=== PATIENT | female | born 1995 | race Caucasian/White ===

== ENCOUNTER 2023-07-18 11:22 | Emergency (ER) | payer OTHER, SELFPAY ==
[2023-07-18 11:27] VITALS: BP 121/84; PULSE 95; RESP 18; TEMP 36.9; O2SAT 100; BMI 20.9
--- NOTE | 2023-07-18 11:38 | ED.GENADULT ---
HPI - General Adult General Chief complaint: Skin/Abscess/Foreign Body Stated complaint: Cat bite R hand yesterday Time Seen by Provider: 07/18/23 11:25 Source: patient Mode of arrival: ambulatory Limitations: no limitations History of Present Illness HPI narrative: 27-year-old female coming in today approximately 24 hours after a cat bite. Patient works at a pet store. Unsure of her last tetanus shot. Complains of pain and swelling over the dorsal surface of the right hand. Denies systemic symptoms. Related Data Home Medications Medication Instructions Recorded Confirmed levothyroxine 125 mcg capsule 137 mcg PO QDAY 05/24/22 08/15/22 norgestimate 0.25 mg-ethinyl 1 tab PO QDAY 05/24/22 08/15/22 estradiol 35 mcg tablet (Estarylla) Previous Rx's Medication Instructions Recorded amoxicillin 875 mg-potassium 1 tab PO BID 7 days #14 tabs 07/18/23 clavulanate 125 mg tablet Allergies Allergy/AdvReac Type Severity Reaction Status Date / Time fluoxetine [From Prozac] Allergy Mild Verified 07/18/23 11:27 Sulfa (Sulfonamide Allergy Verified 07/18/23 11:27 Antibiotics) Review of Systems Status of ROS: Reports: 6 or more systems reviewed and unremarkable except as noted in History and below PFSH PFS Social History Smoking Status: Never smoker Do you use any of these nicotine containing products: None Second hand tobacco smoke exposure: No How often do you have a drink containing alcohol: monthly or less How many standard drinks containing alcohol do you have on a typical day: 1 or 2 How often do you have six or more drinks on one occasion: Never AUDIT-C Alcohol total score: 1 Non-prescribed substance use: denies use service: No Exam Narrative: Exam Narrative: Well-nourished well-developed patient in no acute distress. Alert and oriented. Answers questions appropriately. Mood and affect are appropriate. Thoughts are goal oriented and rational. No tangential or magical thinking noted. Patient speaks in full sentences without needing to catch her breath. Vital signs are normal. HEENT: Normocephalic atraumatic. Pupils are equally round reactive to light. Extraocular muscles are intact. Conjunctivae are moist without any icterus noted. Moist mucous membranes. Skin: Patient has swelling, warmth and erythema on the dorsal surface of the right hand. Redness does not extend down to the wrist or into the fingers. Full range of motion of the fingers and wrist. Const: Vital Signs, click to edit/add: Vital Signs - 24 hr 07/18/23 11:27 Temperature 98.5 F Pulse Rate [Pulse Oximeter] 95 Respiratory Rate 18 Blood Pressure [Le ft Upper Arm] 121/84 Pulse Oximetry 100 Oxygen Delivery Me thod Room Air Course Course ED Course: Given the amount of swelling and erythema noted today in just 24 hours time, a dose of IV Unasyn was given in the ED today. Patient did have a vasovagal episode with the IV insertion, recovered without incident. Tetanus shot is updated today. Vital Signs Vital signs: Initial Vital Signs Temperature 98.5 F 07/18/23 11:27 Temperature Source Temporal Artery Scan 07/18/23 11:27 Pulse Rate 95 07/18/23 11:27 Pulse Rhythm Regular 07/18/23 11:27 Respiratory Rate 18 07/18/23 11:27 Blood Pressure 121/84 07/18/23 11:27 Blood Pressure Mean 96 07/18/23 11:27 Blood Pressure Position Sitting 07/18/23 11:27 Pulse Oximetry 100 07/18/23 11:27 Oxygen Delivery Method Room Air 07/18/23 11:27 Vital Signs Temperature 98.5 F 07/18/23 11:27 Pulse Rate 95 07/18/23 11:27 Respiratory Rate 18 07/18/23 11:27 Blood Pressure 121/84 07/18/23 11:27 Pulse Oximetry 100 07/18/23 11:27 Oxygen Delivery Method Room Air 07/18/23 11:27 Temperature 98.5 F 07/18/23 11:27 Pulse Rate 95 07/18/23 11:27 Respiratory Rate 18 07/18/23 11:27 Blood Pressure 121/84 07/18/23 11:27 Pulse Oximetry 100 07/18/23 11:27 Oxygen Delivery Method Room Air 07/18/23 11:27 Medications Administered Medications: Discontinued Medications Generic Name Dose Route Start Last Admin Trade Name Freq PRN Reason Stop Dose Admin Ampicillin Sodium/Sulbactam 100 mls @ 200 mls/hr 07/18/23 11:36 07/18/23 11:53 Sodium 3 gm/ Sodium Chloride IVPB 07/18/23 11:37 200 mls/hr ONCE ONE Administration Medical Decision Making MDM Narrative Medical decision making narrative: 27-year-old female cellulitis status post a cat bite. Patient will be discharged home on Augmentin. Discharge Plan Discharge Clinical Impression: Cellulitis, Cat bite Patient Disposition: Home, Self-Care Condition: Stable Additional Instructions: Take all antibiotics as prescribed. Follow-up with your primary care provider as needed next week. Return to the emergency room if despite antibiotic treatment in the next 2 days redness continues to spread. Prescriptions: New amoxicillin-pot clavulanate 875-125 mg tablet 1 tab PO BID 7 Days Qty: 14 0RF No Action norgestimate-ethinyl estradiol [Estarylla] 0.25-35 mg-mcg tablet 1 tab PO QDAY levothyroxine 125 mcg capsule 137 mcg PO QDAY Follow Up/Referrals: Marah Mancera PA [Referring] - Stand Alone Forms: [employer] Info Instructions
[2023-07-18] MEDS: AMPICILLIN/SULBACTAM 3 GM in 0.9 % SODIUM CHLORIDE Mini-bag 100 ML IVPB (11:53)
[2023-07-18] MEDS: TETANUS/DIPHTH/PERTUSSIS 0.5 ML SYRINGE IM (12:36)
[2023-07-18] MEDS: KETOROLAC 30 MG/ML inj IVP (12:36)
== END 2023-07-18 12:50 | disposition home or self-care (01) ==
LOC: ED 12:15
PROVIDERS: Emergency Provider Family Medicine; PCP Family Medicine
DX: L03.113 Cellulitis of right upper limb (principal); W55.01XA Bitten by cat, initial encounter; Z23 Encounter for immunization
CPT/HCPCS: 90471; 90715; 96365; 96375; 99283; 99284; J0295; J1885